=== PATIENT | female | born 2000 | race Caucasian/White ===

== ENCOUNTER → 2020-12-29 | Outpatient (CLI) | payer BC ==
--- NOTE | 2020-12-29 11:56 | KCIC ---
STUDY: MRI of the right foot without contrast INDICATION: Contusion of foot. COMPARISON: Right foot radiographs 11/27/2020; MRI of the right foot 08/03/2013 TECHNIQUE: Multiplanar MR imaging of the right foot performed without the use of intravenous or intra -articular contrast. FINDINGS: Bones: No acute/subacute fracture or marrow contusion. Alignment is within normal limits. Normal sign al and positioning of the hallux sesamoids. Musculotendinous: The partially imaged portion of the tendons arising from the ankle are intact and n ormally located. Small amount of tendon sheath fluid at the knot of Reed but not clinically signific ant. Normal bulk of the intrinsic foot musculature and intact ligaments. There appears to be very mil d muscular edema of the flexor digitorum brevis musculature at the level of the mid metatarsals, imag e 17 series 9, however this could be artifactual. Ligaments: The Lisfranc ligament complex is intact. No acute abnormality of the great toe or lesser M TP capsuloligamentous structures. Intact intercuneiform and intermetatarsal ligaments. Sinus Tarsi: The visualized portion maintains expected fatty signal. Plantar fascia: The visualized plantar fascia is normal in signal and thickness. Miscellaneous: Small amount of fluid signal between the cuneiforms and adjacent metatarsals but witho ut surrounding soft tissue edema. IMPRESSION: 1. No acute or subacute fracture. No marrow contusion. Intact and normally located major tendons. No ligamentous disruption to include the Lisfranc ligament complex. 2. Possible very mild muscular edema along a portion of the flexor digitorum brevis but this may be artifactual. If real this could be related to minimal strain. Electronically signed by: LANNY ALEJANDRA MD (12/29/2020 11:54 AM) [id number]
== END ==
LOC: KCIC MRI 09:48
PROVIDERS: ATTEND Podiatrist
DX: S90.31XA Contusion of right foot, initial encounter (principal); M25.871 Other specified joint disorders, right ankle and foot; X58.XXXA Exposure to other specified factors, initial encounter; Y93.89 Activity, other specified; Y92.89 Other specified places as the place of occurrence of the external cause; Y99.8 Other external cause status
CPT/HCPCS: 73718